=== PATIENT | female | born 1935 | race Caucasian/White ===

== ENCOUNTER 2023-12-29 23:00 | Emergency (ER) | payer MEDICARE, SELFPAY ==
[2023-12-29 23:01] VITALS: BP 215/119; PULSE 99; RESP 14; TEMP 36.1; O2SAT 97; BMI 20.2
--- NOTE | 2023-12-29 23:15 | ED.RN ---
PD that was on scene at patients house states they called the hospice contact that the patient and family had, which is [facility] hospice. PD states a leasing manager called them back and stated they would send a nurse to our facility to help get the patient placed safely.
[2023-12-30 00:30] VITALS: BP 172/80; PULSE 76; RESP 16; O2SAT 92
[2023-12-30 01:44] VITALS: BP 181/86; PULSE 68; RESP 18; TEMP 36.6; O2SAT 98
[2023-12-30 03:17] VITALS: BP 156/78; PULSE 66; RESP 20; O2SAT 94
--- NOTE | 2023-12-30 03:25 | ED.RN ---
This RN called [facility] hospice checking up since we have been waiting 4 hours for a hospice nurse to come to our facility. Spoke with Madisyn, she states oh that patient is no longer in our services because you aren't a contracted facility. This RN explains that the patient was brought to the ED because her daughter who is her caregiver was pink slipped for a mental evaluation. Madisyn states that the patient can no longer be on their services due to going to a non [facility] facility. This RN asked to speak to a maintenance service supervisor, Betzaida calls back states that the information is correct that the patient was signed off of their services due to being taken to our ED. I asked why we were notified and patient/family was not notified. She said im sorry about that She states the patient can not be signed back on to their services because her caregiver is pink slipped and can not consent for the patient. Dr Gill made aware.
--- NOTE | 2023-12-30 03:50 | ED.RN ---
Per Dr Gill the plan is to keep patient in ED overnight and have social work help in the morning.
[2023-12-30 06:30] VITALS: BP 203/90; PULSE 88; RESP 20; O2SAT 92
--- NOTE | 2023-12-30 08:10 | EX.ED.DYSGE1 ---
HPI History of Present Illness Chief Complaint: Mental Health Narrative Narrative: Patient is an 88-year-old female who lives with her daughter who takes care of her and is on hospice with past medical history of dementia and asthma and hypertension. [employer] were called to the home based on the daughter having rosemarie and flight of ideas and therefore she was pink slipped and brought to the hospital. The daughter is the only steamtable attendant railroad for the patient and as she has been pink slipped and will be sent to a psychiatric facility there is no one left to care for the patient and therefore please also send the mother to the hospital for evaluation. The patient states she has no complaints at this time [facility] Medical History Asthma Hypertension On home oxygen therapy Allergy/AdvReac Type Severity Reaction Status Date / Time acetaminophen [From Vicodin] Allergy Unknown PT UNSURE Verified 12/30/23 03:50 OF REACTION amoxicillin [From Augmentin] Allergy Unknown PT UNSURE Verified 12/30/23 03:50 OF REACTION clavulanic acid Allergy Unknown PT UNSURE Verified 12/30/23 03:50 [From Augmentin] OF REACTION hydrocodone [From Vicodin] Allergy Unknown PT UNSURE Verified 12/30/23 03:50 OF REACTION Sulfa (Sulfonamide Allergy Unknown PT UNSURE Verified 12/30/23 03:50 Antibiotics) OF REACTION Surgical History (Updated 12/30/23 @ 00:38 by Amber Julian) H/O foot surgery History of eye surgery Social History Smoking Status: Never smoker ROS [facility] ED Constitutional Constitutional ED: Denies chills or fever(s) ENT ENT ED: Denies sore throat Cardiovascular Cardiovascular: Denies chest pain Respiratory/Chest Respiratory/Chest: Denies cough or dyspnea Gastrointestinal Gastrointestinal: Denies abdominal pain, diarrhea, nausea or vomiting Genitourinary Genitourinary ED: Denies dysuria Musculoskeletal Musculoskeletal: Denies myalgias Integumentary Denies rash Neurologic Neurologic: Reports weakness; Denies headache(s) Hematologic/Lymphatic Hematologic/Lymphatic: Denies easy bleeding or easy bruising EXAM Physical Exam Const Vital Signs: 12/29/23 23:01 12/30/23 00:30 12/30/23 01:44 Temperature 97 F L 98 F Temperature Source Temporal Temporal Pulse Rate 99 76 68 Respiratory Rate 14 16 18 Blood Pressure 215/119 H 172/80 H 181/86 H Blood Pressure Mean 151 110 117 Pulse Ox 97 92 98 Oxygen Delivery Method Room Air Nasal Cannula Oxygen Flow Rate (L/min) 2 12/30/23 03:17 12/30/23 06:30 Temperature Temperature Source Pulse Rate 66 88 Respiratory Rate 20 H 20 H Blood Pressure 156/78 H 203/90 H Blood Pressure Mean 104 127 Pulse Ox 94 92 Oxygen Delivery Method Nasal Cannula Nasal Cannula Oxygen Flow Rate (L/min) 2 2 Positive well nourished and well developed General Appearance ED: well developed; Negative for pallor HEENT Reports dry mucous membranes HEENT Narrative: No tongue or lip swelling no oral lesions no airway edema or compromise Mouth ED: Yes dry mucous membranes Mouth: dry mucous membranes Eyes PERRL and EOMs intact bilaterally General Eye ED: Negative for scleral icterus Neck supple Neck Narrative: No nuchal rigidity or meningeal signs Resp Resp Narrative: Breath sounds are diminished throughout with faint expiratory wheeze in the bases but otherwise no nasal flaring retractions tachypnea or accessory muscle use Cardio regular rate and regular rhythm Rate: other Other Details: Radial and carotid pulses are equal and symmetric GI normal to inspection, nondistended, normoactive bowel sounds, non-tender, non-distended and no masses Auscultation: normoactive bowel sounds Palpation: soft Extremity normal to inspection Extremity Narrative: No obvious bony deformity or joint effusion noted No asymmetric edema Neuro CN's II-XII intact bilaterally Neuro Narrative: Patient is awake and alert to person and place but disoriented to time. She has chronic weakness to the bilateral lower legs without focal neurologic deficit. Sensorium / Orientation: alert Psych Psych Narrative: Patient has a flat affect Skin no rashes or lesions noted General Skin Exam: Negative for jaundice or pallor MDM MDM MDM Narrative Medical decision making narrative: Patient arrived to the ER at her baseline mental status and satting well on her normal oxygen. Blood pressure is elevated but she has a history of this. At this time her only reason for her being sent to the hospital is that her only steamtable attendant railroad has been pink slipped and will be heading to a psychiatric facility secondary to her paranoia and rosemarie. She is in [facility] hospice care and therefore we contacted them but they state that because she was sent to a non-[facility] facility that they cannot provide any type of treatment for her. I discussed with nursing contacting [facility] but as the patient's daughter who acts as her legal guardian has been pink slipped she cannot sign consent and also as the patient has history of dementia she is not capable of providing consent for treatment by hospice either. As the only reason she is here is that she No longer has a steamtable attendant railroad I do not feel there is a need for any type of laboratory workup. I do not feel she needs admitted at this time as the only reason she is at the hospital is for lack of a steamtable attendant railroad so therefore we will wait until the morning when social work arrives and they will attempt potential placement while her daughter is at a psychiatric facility At this time as she is pending evaluation by social work the patient will be signed out to the day physician Dr. Mary Discharge Plan Triage Chief Complaint: Mental Health ED Provider: Eugenio Gill Dx/Rx/DC Orders Clinical Impression: Unable to care for self, Generalized weakness, Dementia, Hypertension, Asthma Primary Care Provider: Care Physician,No Primary Referrals: Care Physician,No Primary [Primary Care Provider] -
--- NOTE | 2023-12-30 11:24 | CM.ED ---
Social Work SW called [facility] nurse corporation secretary regarding patient scenario, situation explained and discussed. Nurse reports she will discuss with management and have someone call SW back. SW received return call from Hospice management, Lluvia. Inquired whether patient was admitted or still under ED care, informed patient is an ED patient still. Chief Of Party reports they have been in contact with patient's daughter regarding care as well. Chief Of Party indicates pt was discharged due to being at a non-contracted facility, pink slipped, and being at the hospital for care. Hospice had requested patient to not be brought to the ED and they would send hospice to the home but law enforcement could not stay with the patient and pt has no other caregivers to wait for hospice with her. [place]-slip concern was discussed due to concerns for meeting mental health needs and whether an evaluation was needed. SW explained pink-slip does not indicate an evaluation as necessary as patient was brought for safety and inability to care for self which is not acute and has been ongoing. Patient is not a danger to herself with SI/HI and presents as more appropriate for a medical hold due to capacity and physical inability to care for self. Pt was only brought here due to no caregiver being available to ensure patient's needs were met. Chief Of Party has determined that patient's hospice status would be reinstated due to no care being provided and still in an outpatient status. Patient's ongoing case checker Robina Roman will come to the ED MIGUEL to arrange admission to hospice inpatient unit. Robina has also been in contact with the daughter and daughter is aware of plan of care. Chief Of Party additionally apologized for the situation and that there were some misunderstandings. Chief Of Party reports We do not want the hospital to think we do not care or think poorly of us, we will do what is best for the patient and make this right. SW thanked [employer]el operations manager for assistance. Nursing staff and physician notified of status. Plan: Robina Roman [facility] case checker to see patient in the ED and arrange hospice inpatient admission to their facility. Liberty Aguayo TAKE OFF MAN, INFORMATION CLERK [employer]
[2023-12-30 11:35] VITALS: BP 193/101; PULSE 78; RESP 16
[2023-12-30] MEDS: amLODIPine 10 MG Tablet PO (12:12)
[2023-12-30 13:20] VITALS: BP 202/91; PULSE 87; RESP 16; O2SAT 96
== END 2023-12-30 13:24 | disposition designated cancer center or children's hospital (05) ==
PROVIDERS: Emergency Provider Emergency Medicine; Visit Provider Emergency Medicine
DX: Z74.2 Need for assistance at home and no other household member able to render care (principal); F03.90 Unspecified dementia, unspecified severity, without behavioral disturbance, psychotic disturbance, mood disturbance, and anxiety; I10 Essential (primary) hypertension; J45.909 Unspecified asthma, uncomplicated
CPT/HCPCS: 99284

== ENCOUNTER 2024-01-20 23:14 | Emergency (ER) | payer SELFPAY ==
[2024-01-20 23:16] VITALS: BP 168/106; PULSE 86; RESP 18; TEMP 36.1; O2SAT 99; BMI 22.4
--- NOTE | 2024-01-20 23:52 | EDS_ITS ---
HPI History of Present Illness Chief Complaint: General Illness Narrative Narrative: Patient presents with generalized weakness that has gotten worse. Patient is on hospice. Daughter states that patient needs a safe place to stay. Daughter states that they recently bought a brand-new trailer and a new allotment and other people have been coming into her house. Patient agrees with this. Patient states that she does not feel safe at home. Daughter and patient want to go to hospice facility. [facility] Medical History (Updated 01/21/24 @ 03:[address] Yury Leslie DO) Asthma Hypertension Interstitial pulmonary disease On home oxygen therapy Allergy/AdvReac Type Severity Reaction Status Date / Time acetaminophen [From Vicodin] Allergy Unknown PT UNSURE Verified 01/20/24 23:16 OF REACTION amoxicillin [From Augmentin] Allergy Unknown PT UNSURE Verified 01/20/24 23:16 OF REACTION clavulanic acid Allergy Unknown PT UNSURE Verified 01/20/24 23:16 [From Augmentin] OF REACTION hydrocodone [From Vicodin] Allergy Unknown PT UNSURE Verified 01/20/24 23:16 OF REACTION Sulfa (Sulfonamide Allergy Unknown PT UNSURE Verified 01/20/24 23:16 Antibiotics) OF REACTION Surgical History H/O foot surgery History of eye surgery Social History Smoking Status: Never smoker ROS ROS ED Constitutional Constitutional ED: Denies chills or fever(s) Eyes Eyes: Denies change in vision or diplopia ENT ENT ED: Denies rhinorrhea or sore throat Cardiovascular Cardiovascular: Denies chest pain or palpitations Respiratory/Chest Respiratory/Chest: Denies cough or dyspnea Gastrointestinal Gastrointestinal: Denies nausea or vomiting Genitourinary Genitourinary ED: Denies dysuria or hematuria Musculoskeletal Musculoskeletal: Denies back pain or neck pain Integumentary Denies abscess or rash Neurologic Neurologic: Denies headache(s) or weakness Allergic/Immunologic Allergic/Immunologic ED: Denies mouth swelling or urticaria EXAM Physical Exam Const Vital Signs: 01/20/24 23:16 01/21/24 03:15 Temperature 97.0 F L Temperature Source Temporal Pulse Rate 86 74 Respiratory Rate 18 16 Blood Pressure 168/106 H 211/94 H Blood Pressure Mean 126 133 Pulse Ox 99 99 Oxygen Delivery Method Room Air Positive well nourished and well developed General Appearance ED: well developed HEENT Reports dry mucous membranes Mouth ED: Yes dry mucous membranes Mouth: dry mucous membranes Neck supple and no JVD Resp normal respiratory effort and clear to auscultation bilaterally Cardio regular rate and regular rhythm GI non-tender and non-distended Palpation: soft Neuro oriented x3, CN's II-XII intact bilaterally and no sensory deficits noted Sensorium / Orientation: alert Motor Exam: strength 5/5 throughout Psych mental status grossly normal MDM MDM MDM Narrative Medical decision making narrative: Since the patient is on hospice and has no medical complaints at this time, I do not feel any laboratory testing is necessary. Patient will be observed in the emergency department until hospice can come in and evaluate the patient and place the patient in a hospice facility. Treatment and Re-Evaluation :: Hospice nurse was in to evaluate the patient. Patient will be transferred to hospice facility when a bed becomes available. Care of the patient was turned over the oncoming physician pending transfer to hospice facility. Discharge Plan Triage Chief Complaint: General Illness ED Provider: Yury Leslie Dx/Rx/DC Orders Clinical Impression: Unable to care for self, Dementia, Hypertension, Asthma Primary Care Provider: Care Physician,No Primary Referrals: Care Physician,No Primary [Primary Care Provider] - Disposition Disposition: Hospice in Medical Facility Discharge Location: Other SNF not listed
[2024-01-21 03:15] VITALS: BP 211/94; PULSE 74; RESP 16; O2SAT 99
--- NOTE | 2024-01-21 04:08 | ED.RN ---
Lluvia from [facility] called and spoke to this nurse. She gives report that Raquel is coming to ER for her safety. She reports Raquel' daughter Alissa is not taking proper care of her due to Alissa's mental health. Currently APS is involved and hospice social workers are working to get a legal guardian for Raquel. Tonight there was an issue that Alissa was in [employer] parking lot with Raquel in the car, and was calling 911 stating there was a bomb in the car. Raquel was brought to ER for her safety as she is unable to perform and ADLs and depends on 24/7 caregiver. Lluvia reports that they plan on taking Raquel to their inpatient care unit while working on guardianship. They will arrange transport and should be able to pick her up in the morning. They will call with an update. They request no testing be done and for Raquel to not be admitted.
--- NOTE | 2024-01-21 04:16 | ED.RN ---
[facility] phone number [phone]
[2024-01-21 09:18] VITALS: BP 204/85
--- NOTE | 2024-01-21 12:16 | ED.RN ---
Daughter went to waiting room, she is frustrated there has been no update, she was very tearful. This RN updated that we last spoke to hospice a couple hours ago and are waiting on them to update us.
--- NOTE | 2024-01-21 13:20 | ED.RN ---
Patient updated on plan of care. This RN ensured patient was comfortable. Patient wsa tearful at bedside stating I am going home, home to [facility] .
--- NOTE | 2024-01-21 14:04 | ED.RN ---
[facility] CALLED, ETA 90 MIN - 2 HOURS (1600)
--- NOTE | 2024-01-21 14:11 | ED.RN ---
This Rn called Alissa giraldo, to update her that pt. was accepted to [facility] and transport would be here approx. 4pm.
--- NOTE | 2024-01-21 14:27 | ED.RN ---
This RN called the hospice [facility] and gave report.
[2024-01-21 14:36] VITALS: BP 241/102; PULSE 77; RESP 16
[2024-01-21 16:11] VITALS: BP 241/102; PULSE 77; RESP 16; TEMP 36.1; O2SAT 99
--- NOTE | 2024-01-22 10:57 | CM.ED ---
Social Work Received voicemail from [facility] APS worker ([phone]) asking for update for patient. APS is currently involved with this family. Chart reviewed and noted patient was accepted to [facility] inpatient unit. For continuity of care of this patient, called Phillip to update. No further needs requested. -OCTAVIO Hemphill
== END 2024-01-21 16:13 | disposition hospice, inpatient (51) ==
PROVIDERS: Emergency Provider Emergency Medicine; Visit Provider Emergency Medicine
DX: Z74.1 Need for assistance with personal care (principal); F03.90 Unspecified dementia, unspecified severity, without behavioral disturbance, psychotic disturbance, mood disturbance, and anxiety; I10 Essential (primary) hypertension; J45.909 Unspecified asthma, uncomplicated; Z99.81 Dependence on supplemental oxygen
CPT/HCPCS: 99283